=== PATIENT | female | born 1970 | race Two or more races ===

== ENCOUNTER 2020-03-03 17:12 | Emergency (ER) | payer MEDICAID ==
[~2020-03-03] VITALS: Ht 157.5 cm; Wt 63.5 kg
[2020-03-03] MEDS ORDERED: METFORMIN HCL1000 M1 ORAL (17:41)
[2020-03-03] MEDS ORDERED: GABAPENTIN800 MG ORAL (17:41)
[2020-03-03] MEDS ORDERED: ADVAIR 100-501 EACH INH (17:42)
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
--- NOTE | 2020-03-03 18:05 | NUR ---
ED Nurse Note: Pt in radiology
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
--- NOTE | 2020-03-03 18:25 | Diagnostic Imaging Report ---
ADDENDUM - Added by Ximena Vargas M.D. on 03/03/2020 6:25 PM (-07:00) IMPRESSION: CTDI is 53.4 mGy and DLP is 885.2 mGy-cm. EXAM: CT Head Without Intravenous Contrast CLINICAL HISTORY: PAIN TECHNIQUE: Axial computed tomography images of the head/brain without intravenous contrast. CTDI is 8.3 mGy and DLP is 159 mGy-cm. One or more of the following dose reduction techniques were used: automated exposure control, adjustment of the mA and/or kV according to patient size, use of iterative reconstruction technique. COMPARISON: None FINDINGS: Brain: No acute infarct or hemorrhage. No extra-axial fluid collection. No mass effect or midline shift. Mild calcifications in the basal ganglia. Ventricles and sulci: Normal. No ventriculomegaly or intraventricular hemorrhage. Bones: Probable old fracture deformity of the left lamina papyracea. No acute fracture identified. Subcutaneous tissues: Normal. Sinuses: Normal. No air-fluid levels or mucosal thickening. Mastoid air cells: Normal. Orbits: Grossly unremarkable. IMPRESSION: No acute intracranial abnormality.
--- NOTE | 2020-03-03 18:28 | Diagnostic Imaging Report ---
EXAM: CT Cervical Spine Without Intravenous Contrast CLINICAL HISTORY: PAIN TECHNIQUE: Axial computed tomography images of the cervical spine without intravenous contrast. CTDI is 3.3 mGy and DLP is 159 mGy-cm. One or more of the following dose reduction techniques were used: automated exposure control, adjustment of the mA and/or kV according to patient size, use of iterative reconstruction technique. COMPARISON: None FINDINGS: Bones: Mild reversal of the normal cervical lordosis. No acute fracture or bony lesion. Disc spaces: No subluxation. No spinal canal stenosis or neuroforaminal stenosis. Soft tissues: Normal. Other: Scattered lymph nodes are likely reactive. Enlarged, heterogeneous right thyroid lobe could be further evaluated with nonemergent dedicated ultrasound if clinically indicated. This shifts the trachea leftward. IMPRESSION: No acute traumatic abnormality.
[2020-03-03] MEDS ORDERED: HYDROcodone/Acetamin 5/325 tab ORAL ONE (18:30)
--- NOTE | 2020-03-03 19:00 | NUR ---
HAND-OFF: Report given to CHARIS Colon. Plan of care endorsed.
[2020-03-03] MEDS ORDERED: NORCO 5-325 TA1 EAC1 ORAL (19:05)
[2020-03-03 19:15] VITALS: BP 106/78
--- NOTE | 2020-03-03 19:15 | NUR ---
ER DISCHARGE NOTE: Patient is cleared to be discharged per ER PA. Discharge instructions and prescriptions given to pt with repeat understanding by pt. Pt is aox4, on room air, with stable vital signs. ID band removed. Pt was taught using crutches with repeat demenstration by pt. RT knee immobilizer in place; pt able to move toes, cap refill <3sec. Wheelchair used to DC pt. Pt contacted family member and is waiting in lobby. Pt took all belongings.
--- NOTE | 2020-03-04 09:08 | Diagnostic Imaging Report ---
EXAM: X-RAY XRAY Knee 3v R CLINICAL HISTORY: Knee pain. COMPARISON: None FINDINGS: Total of 3 views of the right knee were obtained. Alignment is anatomic. Degenerative changes of the knee noted with joint space narrowing and osteophyte formation. There is also an intra-articular loose body noted in the anterior aspect of the knee. No erosive change identified. No effusion. Surrounding soft tissue is normal. IMPRESSION: DEGENERATIVE CHANGES WITH INTRA-ARTICULAR LOOSE BODY.
--- NOTE | 2020-03-04 09:10 | Diagnostic Imaging Report ---
EXAM: X-RAY XRAY Knee 3v LT CLINICAL HISTORY: Knee pain. COMPARISON: None FINDINGS: Total of 3 views of the left were obtained. Alignment is anatomic. There is no fracture, bony lesions or erosions. Mild osteoarthritis noted with joint space narrowing and osteophyte formation of the medial compartment. Surrounding soft tissue is normal. IMPRESSION: MILD DEGENERATIVE CHANGES.
== END 2020-03-03 19:15 | disposition home or self-care (01) ==
LOC: EMR 17:50
DX: S83.92XA Sprain of unspecified site of left knee, initial encounter (principal); S00.93XA Contusion of unspecified part of head, initial encounter; M23.41 Loose body in knee, right knee; T14.8XXA Other injury of unspecified body region, initial encounter; M62.838 Other muscle spasm; M54.2 Cervicalgia; R51 Headache; E11.40 Type 2 diabetes mellitus with diabetic neuropathy, unspecified; W50.0XXA Accidental hit or strike by another person, initial encounter; Y92.9 Unspecified place or not applicable
CPT/HCPCS: 29505; 70450; 72125; 73562; Z7502; 99284

== ENCOUNTER 2020-08-20 12:23 | Emergency (ER) | payer MEDICAID ==
[~2020-08-20] VITALS: Ht 157.5 cm; Wt 63.5 kg
[~2020-08-20 12:23] MED LIST: ADVAIR 100-501 EACH INH; GABAPENTIN800 MG ORAL; METFORMIN HCL1000 M1 ORAL; NORCO 5-325 TA1 EAC1 ORAL
[2020-08-20 12:28] VITALS: BP 117/77
--- NOTE | 2020-08-20 12:40 | Emergency Room Report ---
History of Present Illness General Chief Complaint: Headache Source: Patient Present Illness HPI Patient is a 50-year-old female presents for increased left-sided headache for the past 2 days. Associated increased tearing from the left eye. Previous history of one similar episode in the past. Denies any fever. Had not been having any neck stiffness. Gradual onset since yesterday. Denies any difficulty with urination. Had not been having any diarrhea. Allergies: Coded Allergies: No Known Allergies (Unverified , 03/03/20) COVID-19 Screening Contact w/high risk pt: No Recent Travel to affected area: No Experienced COVID-19 symptoms?: No COVID-19 Testing performed MEDICAL BILLING ASSOCIATE: No Patient History Now: No Reviewed Nursing Documentation: PMH: Agreed; PSxH: Agreed Nursing Documentation-PMH Past Medical History: No History, Except For Hx Asthma: Yes Hx Diabetes: Yes Review of Systems All Other Systems: negative except mentioned in HPI Physical Exam Vital Signs Date Time Temp Pulse Resp B/P (MAP) Pulse Ox O2 Delivery O2 Flow Rate FiO2 08/20/20 12:27 98.6 109 20 117/77 (90) 96 Room Air Sp02 EP Interpretation: reviewed, normal General Appearance: normal inspection, well appearing, no apparent distress, alert, GCS 15 Head: atraumatic ENT: normal ENT inspection, hearing grossly normal, normal voice Neck: normal inspection, full range of motion, supple, no bony tend Respiratory: normal inspection, lungs clear, normal breath sounds, no respiratory distress, no retraction, no wheezing Cardiovascular #1: regular rate, rhythm, no edema Gastrointestinal: normal inspection, normal bowel sounds, non tender, soft, no guarding, no hernia Genitourinary: no CVA tenderness Musculoskeletal: normal inspection, back normal, normal range of motion Neurologic: alert, motor strength/tone normal, hunting sales associate III-XII nml as tested, responsive, speech normal, normal inspection Psychiatric: normal inspection, judgement/insight normal, mood/affect normal Medical Decision Making Last Vital Signs Date Time Temp Pulse Resp B/P (MAP) Pulse Ox O2 Delivery O2 Flow Rate FiO2 08/20/20 12:28 98.6 107 20 117/77 96 Room Air Dean Hong MD Aug 20, 2020 12:40
[2020-08-20] MEDS ORDERED: Metoclopramide 10mg/2ml Inj IVP ONE (12:45)
[2020-08-20] MEDS ORDERED: Ketorolac 30mg Inj IV ONE (12:45)
[2020-08-20 13:29] LABS: BASOPHILS % (AUTO) 0.7 % (0.0-2.0); EOSINOPHILS % (AUTO) 0.4 % (0.0-3.0); HEMATOCRIT 44.1 % (37.0-47.0); HEMOGLOBIN 14.6 G/DL (12.0-16.0); LYMPHOCYTES % (AUTO) 16.3 % (20.0-45.0); MEAN CORPUSCULAR VOLUME 90 FL (80-99); MONOCYTES % (AUTO) 4.1 % (1.0-10.0); NEUTROPHILS % (AUTO) 78.6 % (45.0-75.0); PLATELET COUNT 367 K/UL (150-450); RED CELL DISTRIBUTION WIDTH 12.1 % (11.6-14.8); WHITE BLOOD COUNT 12.6 K/UL (4.8-10.8)
[2020-08-20 13:29] LABS: APPEARANCE,URINE CLEAR; BILIRUBIN, URINE NEGATIVE (NEGATIVE); COLOR,URINE PALE YELLOW; GLUCOSE, URINE (UA) 4+ (NEGATIVE); KETONES,URINE 4+ (NEGATIVE); LEUKOCYTE ESTERASE ,URINE NEGATIVE (NEGATIVE); NITRITE,URINE NEGATIVE (NEGATIVE); PH,URINE 6 (4.5-8.0); PROTEIN,URINE NEGATIVE (NEGATIVE); UROBILINOGEN,URINE NORMAL MG/DL (0.0-1.0)
[2020-08-20 13:40] LABS: ANION GAP 9 mmol/L (5-15); BLOOD UREA NITROGEN 11 mg/dL (7-18); CALCIUM 9.4 MG/DL (8.5-10.1); CARBON DIOXIDE 30 MMOL/L (21-32); CHLORIDE 95 MMOL/L (98-107); CREATININE 0.8 MG/DL (0.55-1.30); POTASSIUM 3.6 MMOL/L (3.5-5.1); SODIUM 134 MMOL/L (136-145)
[2020-08-20 13:44] LABS: ALANINE AMINOTRANSFERASE 33 U/L (12-78); ALBUMIN 3.4 G/DL (3.4-5.0); ALBUMIN/GLOBULIN RATIO 0.9 (1.0-2.7); ALKALINE PHOSPHATASE 160 U/L (46-116); ASPARTATE AMINO TRANSFERASE 23 U/L (15-37); BILIRUBIN,TOTAL 0.4 MG/DL (0.2-1.0)
[2020-08-20] MEDS ORDERED: FIORICET1 EA ORAL (14:31)
--- NOTE | 2020-08-20 14:51 | Diagnostic Imaging Report ---
Indications: Headache for 2 days Technique: Spiral acquisitions obtained through the brain. Angled axial and coronal 5 x 5 mm slices were reconstructed. Total dose length product 942 mGycm. CTDI vol(s) 53 mGy. Dose reduction achieved using automated exposure control Comparison: 03/03/2020 Findings: No acute intracranial hemorrhage or edema, mass effect, nor midline shift. Normal zepeda-white differentiation. Normal size ventricles and extra axial CSF spaces. Visualized orbits are unremarkable. There is minimal left ethmoid sinus disease. The mastoids are clear. The calvarium is intact. No significant interim change Impression: Negative for acute intracranial bleed or mass effect Incidental finding minimal ethmoid sinus disease The CT scanner at [facility] is accredited by the [employer] and the scans are performed using protocols designed to limit radiation exposure to as low as reasonably achievable to attain images of sufficient resolution adequate for diagnostic evaluation.
[2020-08-20 14:57] VITALS: BP 116/76
== END 2020-08-20 14:57 | disposition home or self-care (01) ==
LOC: EMR 12:59
DX: R51.9 Headache, unspecified (principal); E11.9 Type 2 diabetes mellitus without complications; J32.2 Chronic ethmoidal sinusitis
CPT/HCPCS: 36415; 70450; 80053; 81001; 85025; 85610; 85730; 96374; 96375; J1885; J2765; Z7502; 99284